=== PATIENT | female | born 1960 | race Caucasian/White ===

== ENCOUNTER → 2017-06-28 12:46 | Outpatient (CLI) | payer OTHER | END | disposition home or self-care (01) | LOC: LAB 12:46 | DX: R10.9 Unspecified abdominal pain (principal) ==

== ENCOUNTER → 2017-06-28 | Outpatient (CLI) | payer OTHER ==
[~2017-06-28] MED LIST: ATACAND4 MG PO; CANDESARTAN CILE8 MG; CLARITIN10 MG; COZAAR25 MG PO; GILTUSS TR TAB1 EACH PO; MEDROLPACK PO; ORPH100T PO; PERCOCET 5/3251 TAB PO; TESSALON PERLE100 M1 PO; ZITHROMAX TRI-500 MG PO; ZYRTEC10 MG PO
== END | disposition home or self-care (01) ==
LOC: PPHC 11:35
DX: R10.84 Generalized abdominal pain (principal)

== ENCOUNTER 2021-09-07 05:27 | Emergency (ER) | payer OTHER ==
[~2021-09-07] VITALS: Ht 177.8 cm; Wt 77.1 kg
[2021-09-07] MEDS ORDERED: ATACAND16 MG (05:32)
[2021-09-07] MEDS ORDERED: ONDANSETRON HCL4 MG PO (07:01)
[2021-09-07] MEDS ORDERED: PEPCID AC20 MG PO (07:01)
== END 2021-09-07 07:54 | disposition home or self-care (01) ==
LOC: ER 05:27
DX: F12.929 Cannabis use, unspecified with intoxication, unspecified (principal); R42 Dizziness and giddiness; R11.2 Nausea with vomiting, unspecified

== ENCOUNTER 2024-07-17 07:06 | Outpatient (CLI) | payer OTHER ==
[~2024-07-17 07:06] MED LIST changes: +ATACAND16 MG; +ONDANSETRON HCL4 MG PO; +PEPCID AC20 MG PO
== END 2024-07-17 07:18 | disposition home or self-care (01) ==
LOC: SONOGRAMA 07:06
PROVIDERS: ATTEND Internal Medicine Hematology & Oncology
DX: I10 Essential (primary) hypertension (principal); D51.3 Other dietary vitamin B12 deficiency anemia; N18.2 Chronic kidney disease, stage 2 (mild); D63.1 Anemia in chronic kidney disease; E04.2 Nontoxic multinodular goiter

== ENCOUNTER 2025-03-13 11:00 | Day surgery (SDC) | payer OTHER ==
[2025-03-07 09:55] VITALS: BP 112/76
[~2025-03-13] VITALS: Ht 177.8 cm; Wt 64.4 kg
[2025-03-13] MEDS ORDERED: CHLORHEXIDINE GLUCONATE 120 ML BOTTLE TP ONE (13:15)
[2025-03-13] MEDS ORDERED: CEFAZOLIN SODIUM 1,000 MG in 0.9 % SODIUM CHLORIDE 50 ML IV ONE (13:15)
[2025-03-13] MEDS ORDERED: ONDANSETRON HCL 2 MG/ML VIAL IV ONE (19:25)
== END 2025-03-13 20:25 | disposition home or self-care (01) ==
LOC: CIR.AMB 11:00
PROVIDERS: ATTEND Surgery
DX: K40.30 Unilateral inguinal hernia, with obstruction, without gangrene, not specified as recurrent (principal)

== ENCOUNTER → 2025-03-14 15:22 | Outpatient (CLI) | payer OTHER | END | disposition home or self-care (01) | LOC: SONOGRAMA 03-13 07:39 | PROVIDERS: ATTEND Internal Medicine Geriatric Medicine | DX: M77.11 Lateral epicondylitis, right elbow (principal); M77.12 Lateral epicondylitis, left elbow; M70.21 Olecranon bursitis, right elbow; M70.22 Olecranon bursitis, left elbow ==